=== PATIENT | male | born 1995 | race Two or more races ===

== ENCOUNTER 2019-12-16 16:29 | Outpatient (REF) | payer MEDICAID, SELFPAY | END 2019-12-16 16:30 | disposition home or self-care (01) | LOC: HO.LAB 16:29 | PROVIDERS: Visit Provider Internal Medicine | DX: Z20.828 Contact with and (suspected) exposure to other viral communicable diseases (principal) | CPT/HCPCS: 87635 ==

== ENCOUNTER 2021-04-19 09:40 | Emergency (ER) | payer MEDICAID, SELFPAY ==
[2021-04-19 10:06] VITALS: BP 119/68; PULSE 88; RESP 16; TEMP 37.1; O2SAT 100; BMI 27.1
--- NOTE | 2021-04-19 10:24 | ED.URI ---
HPI - URI/Sore Throat General Chief Complaint: Upper Respiratory Symptoms Stated Complaint: sore throat Time Seen by Provider: 04/19/21 10:17 Source: patient and family Mode of arrival: ambulatory Limitations: no limitations History of Present Illness HPI Narrative: 25 y/o male presents to the ER with 1 day of sore throat, nasal congestion, headache, body aches, and not feeling well since yesterday. He had COVID-19 end of Jan 2021-Feb 2021. He is not vaccinated. He is also not vaccianted for the flu. He presents with his girlfriend who has no symptoms. He denies fever or chills, no SOB or chest pain. Eating and drinking normally. MD elicited complaint: cough, sore throat, rhinorrhea and nasal congestion Onset (ago): day(s) (1) Consistency: progressively worsening Severity: moderate Description of mucous: clear Able to tolerate fluids by mouth: Yes Exacerbating factors: swallowing Relieving factors: OTC cold medicine Associated symptoms: myalgias, headache, rhinorrhea, nasal congestion, sore throat and cough Treatments prior to arrival: none Related Data Previous Rx's Medication Instructions Recorded amoxicillin 500 mg tablet 500 mg PO Q12H #20 tab 04/19/21 Allergies Allergy/AdvReac Type Severity Reaction Status Date / Time SEAFOOD Allergy Unknown UNKNOWN Uncoded 11/11/19 18:39 Review of Systems Review of Systems: Constitutional: No Fever, No Chills ENT/Mouth: + sore throat, No Rhinorrhea, No Swallowing Difficulty Eyes: No Eye Pain, No Swelling, No Redness Cardiovascular: No Chest Pain, No SOB, No Orthopnea, No Edema Respiratory: + Cough, No Sputum, No Wheezing, No dyspnea Gastrointestinal: No Nausea, No Vomiting, No Diarrhea, No abdominal Pain Musculoskeletal: No joint pain, + Myalgias Skin: No Skin Lesions, No rash Neuro: + Weakness, No Dizziness, + Headache Heme/Lymph: No Lymphadenopathy PMFSH Past Medical History Medical History (Updated 04/19/21 @ 11:06 by WILIAM Tenorio) No known health problems Social History Social History Advance Directives: No Advance Directives Information Provided: No Physical Exam Vital Signs: Vital Signs: Last Vital Signs Temp 98.7 F 04/19/21 10:06 Pulse 88 04/19/21 10:06 Resp 16 04/19/21 10:06 BP 119/68 04/19/21 10:06 Pulse Ox 100 04/19/21 10:06 BMI result Body Mass Index 27.1 Appearance: Alert. Oriented X3. No acute distress. Eyes: Pupils equal, round and reactive to light. ENT: Pharynx with moist mucus membranes, posterior pharyngeal erythema with bilateral tonsillar swelling, no exudates. uvula midline. nasal turbinates erythematous with clear nasal discharge. normal voice, handling secretions normally. Neck: Normal inspection. Neck supple. No LAD. CVS: Normal heart rate and rhythm. Pulses normal. Respiratory: No respiratory distress. Breath sounds normal. Skin: Skin warm and dry. Normal skin color. Normal skin turgor. No rashes. Extremities:Normal inspection x4. Neuro: Oriented X 3. Grossly normal, nonfocal Course Course Course Narrative: 25-year-old otherwise healthy male with recent COVID-19 presents to the ER for evaluation of flu-like symptoms including sore throat, headache, body aches, dry cough, nasal congestion that started yesterday. His vital signs are normal and he is nontoxic appearing. Will check a flu swab and a strep throat swab. Reevaluation(s) Reevaluation #1: Influenza is negative and patient is found to be positive for strep pharyngitis. Will treat with 10 days amoxicillin. Stable for discharge home with oral antibiotics and supportive care. MDM - URI/Sore Throat Lab Data Labs: Lab Results 04/19/21 04/19/21 Range/Units 10:25 10:25 Influenza Type A (MELODY) Negative (Negative) Influenza Type B (MELODY) Negative (Negative) Influenza A & B Note See Note S. pyogenes GrpA MELODY Positive A (Negative) Discharge Plan Discharge Clinical Impression: Strep pharyngitis Patient Disposition: Home, Self-Care Instructions: Strep Throat (DC) Additional Instructions: You're positive for strep throat. Take the prescribed antibiotic as directed, start taking today. Complete the entire course. Recommend [id number] Chloraseptic spray to help with pain in the back your throat. Recommend gargling with warm salt water several times per day. Take Motrin or Tylenol as needed for aches and pains. Follow-up with her primary care doctor as needed. If you develop new or worsening symptoms call 911 or come back to the ER for further evaluation. Prescriptions: New amoxicillin 500 mg tablet 500 mg PO Q12H Qty: 20 0RF
[2021-04-19 10:50] LABS: IDNOW Serial# 08D9AD1C; Influenza A Negative (Negative); Influenza B2 Negative (Negative); Strep A Nucleic Acid Positive (Negative)
== END 2021-04-19 11:18 | disposition home or self-care (01) ==
LOC: HO.ED 11:09
PROVIDERS: Physician Assistant; Emergency Provider Emergency Medicine
DX: J02.0 Streptococcal pharyngitis (principal)
CPT/HCPCS: 87502; 87651; 99283

== ENCOUNTER 2021-08-20 10:08 | Emergency (ER) | payer MEDICAID, SELFPAY ==
--- NOTE | ~2021-08-20 | XR_ITS ---
EXAMINATION: XR KNEE, LEFT CLINICAL INFORMATION: Pain. Fall. COMPARISON: None TECHNIQUE: Four views of the left knee. FINDINGS: Bones and soft tissues are normal. No fracture or joint effusion. Alignment is anatomic. Joint spaces are well maintained. No abnormal soft tissue calcification. XR/XR knee LT 4V IMPRESSION: Normal left knee.
[2021-08-20 10:48] VITALS: BP 124/82; PULSE 60; RESP 18; TEMP 37; O2SAT 99; BMI 25.8
--- NOTE | 2021-08-20 12:14 | ED_ITS ---
HPI - Extremity Injury (Lower) General Chief Complaint: Extremity Injury, Lower Stated Complaint: fell on pallet hurt left knee Time Seen by Provider: 08/20/21 11:00 Source: patient Mode of arrival: ambulatory Limitations: no limitations History of Present Illness HPI Narrative: Patient presents emergency department for evaluation of left knee pain. He states that while at work he fell on a wooden Pallet, feeling his left knee hyper extended backwards. Now reporting pain to the posterior knee. He is able to weightbear and walk on the leg but it is painful. Denies any numbness or tingling to the leg. Denies left ankle or hip pain. Denies any prior injury to the knee. Related Data Previous Rx's Medication Instructions Recorded amoxicillin 500 mg tablet 500 mg PO Q12H #20 tabs 04/19/21 Allergies Allergy/AdvReac Type Severity Reaction Status Date / Time SEAFOOD Allergy Unknown UNKNOWN Uncoded 11/11/19 18:39 Review of Systems Review of Systems: Musculoskeletal: Positive knee pain. Yes all other sys tems are reviewed and are negative PMFSH Past Medical History Attestation statement: The following information was validated with the patient. Source: old records reviewed Medical History No known health problems Social History Social History Advance Directives: No Advance Directives Information Provided: No Physical Exam Vital Signs: Vital Signs: Last Vital Signs Temp 98.6 F 08/20/21 10:48 Pulse 60 08/20/21 10:48 Resp 18 08/20/21 10:48 BP 124/82 08/20/21 10:48 Pulse Ox 99 08/20/21 10:48 O2 Del Method 08/20/21 10:48 BMI result Body Mass Index 25.8 Vital signs have been reviewed as normal and appeared to be correct. Blood pressure normal.? Heart rate normal.? Respiration rate normal. Temperature norm al.? Oxygen saturation normal. Appearance: Alert.?Oriented to person, place and time. No acute distress.?Normal affect. Eyes: Pupils equal, round and reactive to light.? ENT: Pharynx normal.?? Neck: Normal inspection.? Neck supple.?? CVS: Heart sounds normal. Normal heart rate and rhythm.? Pulses normal.?? Respiratory: No respiratory distress.? Lung sounds clear to auscultation bilaterally?? Abdomen: Soft and non-tender. Normoactive bowel sounds. Skin: Skin warm and dry.? Normal skin color.??? Extremities: No lower extremity edema.? No calf ttp. Anterior drawer test negative, posterior drawer test negative, valgus stress test negative, Veress stress test negative. No effusion. No crepitus. No obvious deformity. Palpable 2+ DP/PT pulse is Neuro: Moves all extremities spontaneously. Sensation intact bilaterally. CN II- XII intact. No focal neuro deficits. Ambulates with normal steady gait. Course Course Course Narrative: Patient is a 25-year-old male presenting to emergency department for evaluation of traumatic left knee pain. XR reveals no acute fracture dislocation, no laxity on exam, or obvious deformity/effusion. Suspect patient to have sprain of the knee. Discussed cannot completely exclude ligamentous injury, as XR imaging is not the imaging of choice for this. At this time we discussed symptomatic management, Tylenol and ibuprofen as needed for pain, Mor bandage for compression, ice and elevation of the extremity. Advised patient that he should contact his work to determine appropriate follow-up, as they may have a preferred workman's comp organization, otherwise advised to follow-up with his primary care provider within 1 week. Discussed reasons to return back to the emergency department, all questions were answered and patient was discharged home in stable condition MDM - Extremity Injury (Lower) Medical Records Attestation: I reviewed the patient's medical records. Imaging Data XR knee: Radiologist's impression: XR/XR knee LT 4V IMPRESSION: Normal left knee. Discharge Plan Discharge Clinical Impression: Knee sprain Patient Disposition: Home, Self-Care Instructions: Knee Sprain (ED), R.I.C.E. Treatment (ED) Additional Instructions: As we discussed the x-ray of your knee was normal. Suspect your pain to be related to a sprain of the knee, as we discussed, cannot completely exclude a ligament injury, as x-ray imaging is not the imaging of choice for this. Be sure to rest, apply ice for 10-15 minutes a few times a day, use an Mor bandage for compression, and elevate your leg when possible. You can take ibuprofen 200 mg, 3 tablets (600mg) every 6-8 hours as needed for pain, in addition to Tylenol 500 mg, 2 tablets (1,000mg) every 4-6 hours as needed for pain, but not to exceed 3 doses daily (3,000mg).? You should remain out of work for a few days to ensure rest, as we discussed you will need to follow-up with your work, as they may have a workman's [employer] company that they prefer you to be followed up with. Contact your primary care provider to schedule follow-up visit as needed. Prescriptions: No Action amoxicillin 500 mg tablet 500 mg PO Q12H Qty: 20 0RF Stand Alone Forms: Work/School Release Interventions: ED Discharge Assessment Last Done: 08/20/21 13:36 Discharge Date/Time: 08/20/21 13:37
== END 2021-08-20 13:37 | disposition home or self-care (01) ==
PROVIDERS: Emergency Provider Emergency Medicine Emergency Medical Services
DX: S83.92XA Sprain of unspecified site of left knee, initial encounter (principal); Y29.XXXA Contact with blunt object, undetermined intent, initial encounter; Y93.9 Activity, unspecified; Y92.9 Unspecified place or not applicable; Y99.0 Civilian activity done for income or pay
CPT/HCPCS: 73564; 99283

== ENCOUNTER 2022-06-25 11:08 | Emergency (ER) | payer MEDICAID, SELFPAY ==
--- NOTE | ~2022-06-25 | XR_ITS ---
EXAMINATION: XR CHEST CLINICAL INFORMATION: Left-sided chest pain. COMPARISON: 11/22/2013 chest radiographs. TECHNIQUE: 2 views of the chest were obtained. FINDINGS: No significant abnormality is noted involving the heart, lungs, mediastinum, bony thorax or soft tissues. XR/XR chest 2V IMPRESSION: No acute cardiopulmonary process.
--- NOTE | 2022-06-25 11:10 | ECG_ITS ---
Test Reason : chest pain/ SOB Blood Pressure : / mmHG Vent. Rate : 066 BPM Atrial Rate : 066 BPM P-R Int : 140 ms QRS Dur : 090 ms QT Int : 398 ms P-R-T Axes : 042 037 042 degrees QTc Int : 417 ms Normal sinus rhythm Normal ECG When compared with ECG of 22-NOV-2013 21:20, No significant change was found Referred By: Dory Jackson Electronically Signed By:ALECIA AGARWAL MD
[2022-06-25 11:16] VITALS: BP 123/79; PULSE 74; RESP 18; TEMP 36.1; O2SAT 99; BMI 29.0
--- NOTE | 2022-06-25 11:18 | ED.CHESTPAIN ---
HPI - Chest Pain General Chief Complaint: Chest Pain Stated Complaint: Chest pain Time Seen by Provider: 06/25/22 13:15 Source: patient Mode of arrival: ambulatory Limitations: no limitations History of Present Illness HPI narrative: 26 yo male with no medical history presents to the ER for evaluation of transient nonradiating, sharp left sided lower chest pain that occurred this morning while he was at work and lasted about 10 minutes. Mild associated SOB which is also resolved. He has never had pain like this before. Currently pain free. No N/V/D or abdominal pain. MD complaint: chest pain Onset (ago): hour(s) Timing of current episode: episodic Onset: during rest Pain location: left chest Pain radiation: none Severity: moderate Quality: sharp Relieving factors: rest Exacerbating factors: nothing Associated symptoms: dyspnea Treatment prior to arrival: none Risk Factors Coronary artery disease risk factors: none Thoracic aortic dissection risk factors: none Related Data Previous Rx's Medication Instructions Recorded amoxicillin 500 mg tablet 500 mg PO Q12H #20 tabs 04/19/21 Allergies Allergy/AdvReac Type Severity Reaction Status Date / Time SEAFOOD Allergy Unknown UNKNOWN Uncoded 06/25/22 11:16 Review of Systems Review of Systems: Yes all other systems are reviewed and are negative PMFSH Past Medical History Medical History No known health problems Social History Social History Advance Directives: No Advance Directives Information Provided: No Physical Exam Vital Signs: Vital Signs: Last Vital Signs Temp 97.0 F 06/25/22 11:16 Pulse 74 06/25/22 11:16 Resp 18 06/25/22 11:16 BP 123/79 06/25/22 11:16 Pulse Ox 99 06/25/22 11:16 O2 Del Method Room Air 06/25/22 11:16 BMI result Body Mass Index 29.0 Appearance: Alert. Oriented X3. No acute distress. Head: normocephalic, atraumatic. Eyes: Pupils equal, round and reactive to light. ENT: Pharynx normal. No tonsillar swelling or exudate. Neck: Normal inspection. Neck supple. CVS: Normal heart rate and rhythm. Pulses normal. Respiratory: No respiratory distress. Breath sounds normal. Abdomen: Soft and nontender. +BS x4 Skin: Skin warm and dry. Normal skin color. Normal skin turgor. No rashes. Extremities: No lower extremity edema. No joint swelling. Neuro/psych: Oriented X 3. No motor deficit. No sensory deficit. CN II-XII intact. Normal speech and cognition. Course Course Course Narrative: RME - 26 yo Italian speaking male presents to the ER for evaluation of transient left sided chest pain that started at 10:30am while at work and lasted 10 minutes. Mild SOB associated with it. He is currently pain free. VSS in triage. Plan: EKG and CXR Medical Decision Making Medical Decision Making MDM Narrative: 26 yo healthy male presenting with transient sharp chest pain, now gone. EKG and chest x-ray are normal. remains pain free. doubt cardiac etiology Stable for d/c home with outpatient follow up prn. Differential Diagnosis Differential Diagnoses: The differential diagnosis associated with the presentation includes costochondritis, anxiety, pleurisy, doubt ACS, PE, myocarditis, pericarditis, PNA Independent Interpretation I performed an independent interpretation of an: EKG and Plain X-Ray Interpretation: CXR is clear EKG wtih normal sinus rhythm, HR 66 bpm, normal IL interval, normal QTC, no ST segment elevations or depressions Radiology Impression Discussion of test interpretation with radiology: I have reviewed the radiologist's reading. Radiologist Impression: EXAMINATION: XR CHEST CLINICAL INFORMATION: Left-sided chest pain. COMPARISON: 11/22/2013 chest radiographs. TECHNIQUE: 2 views of the chest were obtained. FINDINGS: No significant abnormality is noted involving the heart, lungs, mediastinum, bony thorax or soft tissues. XR/XR chest 2V IMPRESSION: No acute cardiopulmonary process. Independent Historian Clinical information obtained from an independent historian. History obtained from or confirmed by: Friend External Record Review External record reviewed: Prior outpatient labs Tests considered The following testing was considered but not selected: labs considered but clinical suspicion for cardiac chest pain was very low Critical Care Time Critical Care Time Critical Care Time: No Discharge Plan Discharge Clinical Impression: Atypical chest pain Patient Disposition: Home, Self-Care Instructions: Noncardiac Chest Pain (ED) Additional Instructions: Your EKG was normal Your chest x-ray was normal Your pain is not cardiac Rest and drink plenty of fluids Follow up with you doctor If you develop new or worsening symptoms call 911 or come back to the ER for further evaluation. Prescriptions: No Action amoxicillin 500 mg tablet 500 mg PO Q12H Qty: 20 0RF Stand Alone Forms: Work/School Release Interventions: ED Discharge Assessment Last Done: 06/25/22 14:14 Print Language: Italian
== END 2022-06-25 13:50 | disposition home or self-care (01) ==
PROVIDERS: Emergency Provider Emergency Medicine
DX: R07.89 Other chest pain (principal)
CPT/HCPCS: 71046; 93005; 99283; 99284

== ENCOUNTER 2022-07-02 10:56 | Emergency (ER) | payer MEDICAID, SELFPAY ==
--- NOTE | ~2022-07-02 | US_ITS ---
EXAMINATION: US VENOUS WITH DOPPLER UPPER EXTREMITY, LEFT CLINICAL INFORMATION: Left upper extremity pain and swelling. COMPARISON: None available. TECHNIQUE: Real-time ultrasound examination of the left upper extremity was performed roughly from the mid subclavian vein to the antecubital fossa. Images of the ipsilateral jugular vein were obtained as well. FINDINGS: The cephalic vein, brachial veins, basilic vein, axillary vein and visualized portion of the subclavian vein compress normally throughout. Normal augmentation of flow with compression is demonstrated. The jugular vein appears unremarkable. US/US venous duplex UE LT IMPRESSION: No evidence of left upper extremity venous thrombosis.
--- NOTE | ~2022-07-02 | XR_ITS ---
EXAMINATION: XR ELBOW, LEFT CLINICAL INFORMATION: Left elbow pain and swelling. COMPARISON: Left elbow radiographs dated 03/07/2017. TECHNIQUE: AP, lateral, and oblique views of the left elbow. FINDINGS: The bones and soft tissues are normal. No fracture or joint effusion. Alignment is anatomic. Joint spaces are maintained. XR/XR elbow LT min 3V IMPRESSION: Unremarkable examination.
[2022-07-02 11:17] VITALS: BP 124/71; PULSE 71; RESP 19; TEMP 36.2; O2SAT 99; BMI 31.3
--- NOTE | 2022-07-02 11:17 | ED_ITS ---
HPI - Extremity Injury (Upper) General Chief Complaint: Extremity Problem <WILIAM Hogde Last Filed: 07/02/22 11:22> Stated Complaint: L arm pain/swelling no inj <WILIAM Hodge - Last Filed: 07/02/22 11:22> Time Seen by Provider: 07/02/22 11:31 <WILIAM Hodge - Last Filed: 07/02/22 11:22> Source: patient and family <Jose G Walters - Last Filed: 07/02/22 14:18> Limitations: no limitations <Jose G Walters - Last Filed: 07/02/22 14:18> History of Present Illness HPI narrative: 26-year-old male complaining of left elbow pain. Patient states he woke this morning with pain in the middle of his left elbow pain increases with range of motion or palpation. Patient denies any trauma or falls. Patient does work a labor-intensive job. Patient has not had similar symptoms in the past. Patient denies any fever chills or redness to the area. Some slight swelling has been noticed. Symptoms are [id number]. Pain 6/10. Patient denies history of IV drug use. No history of blood clots in the past. Patient is without shortness of breath fever chills. <Jose G Walters - Last Filed: 07/02/22 14:18> Related Data Home Medications: Previous Rx's Medication Instructions Recorded amoxicillin 500 mg tablet 500 mg PO Q12H #20 tabs 04/19/21 naproxen 500 mg tablet 500 mg PO BID PRN pain #30 tabs 07/02/22 <WILIAM Hodge Last Filed: 07/02/22 11:22> Allergies/Adverse Reactions: Allergies Allergy/AdvReac Type Severity Reaction Status Date / Time SEAFOOD Allergy Unknown UNKNOWN Uncoded 06/25/22 11:16 <WILIAM Hodge Last Filed: 07/02/22 11:22> Review of Systems Review of Systems: General: No fever, no chills ENT: No sore throat, no ear pain Cardiovascular: No chest pain, no peripheral edema, no shortness of breath Respiratory: No dyspnea, no sputum production, no cough Muscle skeletal: Left elbow positive pain GI: No abdominal pain: no nausea vomiting, no diarrhea : No dysuria, no urgency, no frequency Psychiatric: No depression, no suicidal ideation, no homicidal ideation Skin: No rash Immunology: No immunocompromised Hematology: No bleeding, no bruising <Jose G Walters - Last Filed: 07/02/22 14:18> [facility] Past Medical History Medical History: Medical History No known health problems <WILIAM Hodge - Last Filed: 07/02/22 11:22> Social History Social History: Social History Alcohol intake: current Alcohol intake frequency: a few times a week Smoked in Last 30 Days: Yes Use of substances other than those prescribed or required for medical reasons: No Advance Directives: No Advance Directives Information Provided: Yes <WILIAM Hodge - Last Filed: 07/02/22 11:22> Physical Exam Vital Signs: Vital Signs: Last Vital Signs Temp 97.2 F 07/02/22 11:17 Pulse 71 07/02/22 11:17 Resp 07/02/22 11:17 BP 124/71 07/02/22 11:17 Pulse Ox 99 07/02/22 11:17 O2 Del Method Room Air 07/02/22 11:17 BMI result Body Mass Index 31.3 <WILIAM Hodge - Last Filed: 07/02/22 11:22> Vital Signs: Last Vital Signs Temp 97.2 F 07/02/22 11:17 Pulse 71 07/02/22 11:17 Resp 07/02/22 11:17 BP 124/71 07/02/22 11:17 Pulse Ox 99 07/02/22 11:17 O2 Del Method Room Air 07/02/22 11:17 BMI result Body Mass Index 31.3 <Jose G Walters - Last Filed: 07/02/22 14:18> General appearance: Awake, alert, cooperative, in no acute distress Skin: Warm, dry, no rash, left upper extremity no areas of erythema induration noted Eyes: PERRL, EOMI, no icterus ENT: Oropharynx normal, uvula midline Neck: Soft supple full range of motion Pulmonary: Breath sounds clear to auscultation bilaterally, no accessory muscle use Cardiovascular: Regular rate and rhythm, no murmurs and rubs Extremities: Left elbow medial lateral epicondyle and nontender positive range of motion. Pain does increase with range of motion. Tenderness is over the electron per bursa. Pulses sensation intact. Full range of motion Neuro: Alert oriented x3, no focal deficit Psych: Normal affect <Jose G Walters - Last Filed: 07/02/22 14:18> Course Course Course Narrative: RME: 26yo m w/no sig PMHx c/o L elbow pain and swelling since waking this morning. Denies known injury/trauma or fall, fever or chills + left elbow swelling noted with tenderness. Limited ROM secondary to pain. No erythema/warmth. NV intact distally X-ray ordered, may need venous duplex ultrasound Full HPI, ROS and PE to be performed by primary ED provider. <WILIAM Hodge - Last Filed: 07/02/22 11:22> Medical Decision Making Medical Decision Making MDM Narrative: Left elbow occult fracture Left elbow olecranon bursitis Left elbow epicondylitis Left elbow pain Left upper extremity DVT Left bicipital tendon rupture low suspicion 26-year-old male with atraumatic left elbow pain. Patient denies past medical history. Left elbow x-rays pending. Symptoms see more consistent with micron bursitis 12:41 X-ray of the left elbow was negative Will get a left upper extremity duplex ultrasound rule out DVT 14:15 duplex of the left upper extremities negative symptoms seem more consistent with olecranon bursitis. <Jose G Walters - Last Filed: 07/02/22 14:18> Radiology Impression Discussion of test interpretation with radiology: I have reviewed the radiologist's reading. <Jose G Walters - Last Filed: 07/02/22 14:18> Radiologist Impression: [address] [id number] Ultrasound Report Signed Patient: Ramon Ellsworth MR#: [id number] : 1995 Acct:[id number] Age/Sex: 26 / M ADM Date: 07/02/22 Loc: HO.ED Attending Dr: Ordering Physician: Jose G Walters Date of Service: 07/02/22 Procedure(s): US venous duplex UE Accession Number(s): [id number] cc: Jose G Walters ~ EXAMINATION:? US VENOUS WITH DOPPLER UPPER EXTREMITY, LEFT CLINICAL INFORMATION:? Left upper extremity pain and swelling. COMPARISON:? None available. TECHNIQUE: Real-time ultrasound examination of the left upper extremity was performed roughly from the mid subclavian vein to the antecubital fossa.? Images of the ipsilateral jugular vein were obtained as well. FINDINGS: The cephalic vein, brachial veins, basilic vein, axillary vein and visualized portion of the subclavian vein compress normally throughout. ?Normal augmentation of flow with compression is demonstrated.? The jugular vein appears unremarkable. US/US venous duplex UE LT IMPRESSION: ? No evidence of left upper extremity venous thrombosis. Dictated By: Bo Hernandez Signed By: <Electronically signed by Bo? Mary in [place]> 07/02/22 1404 DD/ 1325 TD/TT:? Hide Handler: [address] [id number] XRay Report Signed Patient: Ramon Ellsworth MR#: [id number] : 1995 Acct:[id number] Age/Sex: 26 / M ADM Date: 07/02/22 Loc: .ED Attending Dr: Ordering Physician: Della Cameron Date of Service: 07/02/22 Procedure(s): XR elbow LT min 3V Accession Number(s): [id number] cc: Della Cameron~ EXAMINATION: XR ELBOW, LEFT CLINICAL INFORMATION: Left elbow pain and swelling.? COMPARISON: Left elbow radiographs dated 03/07/2017.? TECHNIQUE: AP, lateral, and oblique views of the left elbow. FINDINGS: The bones and soft tissues are normal. No fracture or joint effusion. Alignment is anatomic. Joint spaces are maintained.? XR/XR elbow LT min 3V IMPRESSION: Unremarkable examination. Dictated By: Zafar Apple MD Signed By: <Electronically signed by Zafar Apple MD in [place]> 07/02/22 1235 DD/ 1130 TD/TT:? Hide Handler: <Jose G Walters - Last Filed: 07/02/22 14:18> Discharge Plan Discharge Clinical Impression: Bursitis of left elbow <WILIAM Hodge - Last Filed: 07/02/22 11:22> Patient Disposition: Home, Self-Care <WILIAM Hodge - Last Filed: 07/02/22 11:22> Instructions: Elbow Bursitis (ED) <WILIAM Hodge - Last Filed: 07/02/22 11:22> Additional Instructions: X-ray of the left elbow was negative. Ultrasound of a left upper extremity is negative for a blood clot. Symptoms seem consistent with a left elbow bursitis rest ice elevation medication as directed If symptoms continue call PCP for referral to orthopedics Return if symptoms worsen <WILIAM Hodge - Last Filed: 07/02/22 11:22> Prescriptions: New naproxen 500 mg tablet 500 mg PO BID PRN (Reason: pain) Qty: 30 0RF No Action amoxicillin 500 mg tablet 500 mg PO Q12H Qty: 20 0RF <WILIAM Hodge Last Filed: 07/02/22 11:22> Stand Alone Forms: Work/School Release <WILIAM Hodge - Last Filed: 07/02/22 11:22>
--- NOTE | 2022-07-02 12:26 | PC.NURSE ---
Patient with pain in left elbow, worse with movement. Patient with decreased range of motion to that extremity due to the pain. Patient is otherwise well appearing.
== END 2022-07-02 14:24 | disposition home or self-care (01) ==
PROVIDERS: Emergency Provider Emergency Medicine
DX: M70.32 Other bursitis of elbow, left elbow (principal); Y93.89 Activity, other specified; M79.602 Pain in left arm
CPT/HCPCS: 73080; 93971; 99284

== ENCOUNTER 2022-12-17 08:21 | Emergency (ER) | payer SELFPAY ==
[2022-12-17 08:24] VITALS: BP 126/88; PULSE 79; RESP 18; TEMP 36.7; O2SAT 98; BMI 32.4
[2022-12-17 09:00] LABS: IDNOW Serial# 08D9AD1C
[2022-12-17 09:01] LABS: COVID-19 Test Negative (Negative); IDNOW Serial# 9DB6401D; Influenza A Negative (Negative); Influenza B2 Negative (Negative)
--- NOTE | 2022-12-17 10:40 | ED.GENADULT ---
HPI - General Adult General Chief complaint: General Medical Stated complaint: Vomiting/Nausea/Cough Time Seen by Provider: 12/17/22 10:23 Source: patient and family Mode of arrival: ambulatory Limitations: no limitations History of Present Illness HPI narrative: Patient is a 27-year-old male presenting to the emergency department with complaint of nausea and vomiting yesterday, nausea today. Today woke with generalized body aches and nonproductive cough. Denies fever. Patient's significant other reports she medicated him with neck wall last night, patient has not taken any [id number] medications today. He denies abdominal pain, diarrhea, constipation. MD complaint: Nausea, cough, body aches Onset (ago): day(s) Relieving factors: none Exacerbating factors: eating Associated symptoms: nausea/vomiting and other (generalized body aches) Treatments prior to arrival: other (Nyquil) Related Data Previous Rx's Medication Instructions Recorded amoxicillin 500 mg tablet 500 mg PO Q12H #20 tabs 04/19/21 naproxen 500 mg tablet 500 mg PO BID PRN pain #30 tabs 07/02/22 ondansetron 4 mg disintegrating 4 mg PO Q8H PRN nausea and 12/17/22 tablet vomiting #10 tabs Allergies Allergy/AdvReac Type Severity Reaction Status Date / Time SEAFOOD Allergy Unknown UNKNOWN Uncoded 12/17/22 08:28 Review of Systems Review of Systems: As per HPI. Yes all other systems are reviewed and are negative Constitutional: Constitutional: Reports as per HPI [facility] Past Medical History Medical History No known health problems Social History Social History Alcohol intake: current Alcohol intake frequency: a few times a week Advance Directives: No Advance Directives Information Provided: No Physical Exam ED Vital Signs: Vital Signs - 24 hr 12/17/22 08:24 Temperature 98.0 F Pulse Rate 79 Respiratory Rate 18 Blood Pressure 126/88 Pulse Oximetry 98 Oxygen Delivery Method Room Air BMI result Body Mass Index 32.4 Vital signs have been reviewed and appear to be correct. Blood pressure normal. Heart rate normal. Respiratory rate normal. Temperature normal. Oxygen saturation normal. Const General: cooperative, healthy appearing and no acute distress Orientation/consciousness: oriented to person, oriented to place, oriented to time and patient oriented x3 Limitations: no limitations HENMT Head: Yes normocephalic and Yes atraumatic Ears: external ears normal, TM's normal bilaterally and EAC's normal General nose exam: Normal external nose present Face and sinus: Yes face symmetric Mouth: oropharynx normal and moist mucous membranes Throat: Yes tonsils normal, Yes uvula midline, Yes posterior oropharynx abnormal (Erythema without edema or exudate) and No uvular edema Eyes Pupils: Equal, round and reactive pupils present Neck Neck: Yes normal visual inspection, Yes no lymphadenopathy and Yes supple Resp Effort & Inspection: normal respiratory effort and able to speak in complete sentences Auscultation: clear to auscultation bilaterally Cardio Rate: regular rate Rhythm: regular rhythm Heart sounds: S1 normal heart sound present and S2 normal heart sound present GI Palpation (GI): Soft to palpation and nontender Auscultation: normoactive bowel sounds General: Yes no CVA tenderness Back/Spine/Pelvis Back: no CVA tenderness Skin General skin exam: elasticity normal and turgor normal Neuro General: oriented to person, oriented to place, oriented to time, patient oriented x3, moves all extremities, no focal motor deficits and CN's II-XI intact bilaterally Cranial nerves: Yes Equal, round and reactive pupils present Cognition (Neuro): normal cognition Extrem General: Yes full ROM, Yes no pedal edema and Yes no calf tenderness Psych Mental Status: mental status grossly normal Affect: normal affect Thought process: Normal thought process present Medications Administered Discontinued Medications Generic Name Dose Route Start Last Admin Trade Name Freq PRN Reason Stop Dose Admin Ondansetron HCl 4 mg 12/17/22 10:47 12/17/22 10:52 Ondansetron Odt 4 Mg Tab.Nayelidis TRANSLINGU 12/17/22 10:48 4 mg ONCE ONE Administration Medical Decision Making Medical Decision Making [facility] Narrative: Patient is a 27-year-old male presenting to the emergency department with complaint of nausea and vomiting yesterday, nausea today. On exam patient is awake, A+Ox3, VS WNL, afebrile, normal neurological exam without focal deficits, physical exam findings as above. Given reported symptoms and physical exam findings, initial differential includes gastritis, viral illness, COVID, flu, strep pharyngitis. Swabs for COVID and flu negative, patient updated on results. Will swab for strep, order ODT zofran. Likely viral illness as patient is nontoxic appearing. Strep negative, patient updated on results. Will send prescription for Zofran. Return precautions discussed at bedside. Patient verbalized understanding of and agreement with plan. Differential Diagnosis Differential Diagnoses: The differential diagnosis associated with the presentation includes As per [facility]. Lab Data [facility] Lab Attestation statement: I reviewed the patient's lab results. As per [facility] Labs: Lab Results 12/17/22 12/17/22 Range/Units 08:35 10:42 COVID-19 (ANTHONY) Negative (Negative) COVID-19 Clin Com See Note Influenza Type A (MELODY) Negative (Negative) Influenza Type B (MELODY) Negative (Negative) Influenza A & B Note See Note S. pyogenes GrpA MELODY Negative (Negative) External Record Review External record reviewed: Inpatient record, Office record and Outpatient record Prescription Management I considered prescription management with: Other Discharge Plan Discharge Clinical Impression: Viral illness Patient Disposition: Home, Self-Care Instructions: Viral Syndrome (ED) Additional Instructions: You were evaluated in the emergency department today for nausea, vomiting, and cough. Your Covid, flu, and strep tests were all negative. Your symptoms are likely related to a viral illness which will resolve on its own with time and rest. You should ensure adequate fluid intake, and can use Tylenol 650 mg or ibuprofen 600 mg every 6 hours as needed for fever or discomfort. You are being prescribed Zofran (ondansetron) for nausea, please use as prescribed. Please follow-up with your primary care provider this week. Return to the emergency department if you develop chest pain, worsening shortness of breath, difficulty swallowing, fever 100.4? F or greater or any other concerning symptoms. Prescriptions: New ondansetron 4 mg tablet,disintegrating 4 mg PO Q8H PRN (Reason: nausea and vomiting) Qty: 10 0RF No Action amoxicillin 500 mg tablet 500 mg PO Q12H Qty: 20 0RF naproxen 500 mg tablet 500 mg PO BID PRN (Reason: pain) Qty: 30 0RF
[2022-12-17] MEDS: Ondansetron ODT 4 MG TAB.RAPDIS TRANSLINGU (10:52)
[2022-12-17 10:58] LABS: IDNOW Serial# 08D9AD1C; Strep A Nucleic Acid Negative (Negative)
== END 2022-12-17 12:12 | disposition home or self-care (01) ==
PROVIDERS: Registered Nurse Emergency; Emergency Provider Emergency Medicine
DX: B34.9 Viral infection, unspecified (principal); R11.2 Nausea with vomiting, unspecified; R05.9 Cough, unspecified; Z11.52 Encounter for screening for COVID-19
CPT/HCPCS: 87502; 87635; 87651; 99282; 99283

== ENCOUNTER 2024-04-02 16:28 | Emergency (ER) | payer SELFPAY ==
--- NOTE | ~2024-04-02 | XR_ITS ---
CLINICAL HISTORY: pain 1 view chest x-ray Comparison: CR/SR - XR CHEST 2V - 06/25/22 11:52 EDT Findings: The lungs are clear. Normal size heart. No acute fracture. IMPRESSION: 1. No acute findings. This document has been electronically signed by: Aminata Pham MD on 04/02/2024 17:35:33
--- NOTE | 2024-04-02 16:31 | ECG_ITS ---
Test Reason : pain Blood Pressure : */* mmHG Vent. Rate : 105 BPM Atrial Rate : 105 BPM P-R Int : 126 ms QRS Dur : 86 ms QT Int : 336 ms P-R-T Axes : 75 76 70 degrees QTcB Int : 444 ms Sinus tachycardia Otherwise normal ECG When compared with ECG of 25-Jun-2022 11:32, Vent. rate has increased by 39 bpm Referred By: Yoly Morrell Electronically Signed By: Paolo Espinoza
[2024-04-02 16:43] VITALS: BP 123/68; PULSE 104; RESP 19; TEMP 37.3; O2SAT 94; BMI 31.5
--- NOTE | 2024-04-02 16:45 | ED.GENADULT ---
HPI - General Adult General Chief complaint: Upper Respiratory Symptoms Stated complaint: chest pain,headache,nausea Time Seen by Provider: 04/03/24 00:13 Source: patient Mode of arrival: ambulatory Limitations: no limitations History of Present Illness ED Provider: Dr. Keyonna Thomas HPI narrative: Patient comes in the emergency room complaining of cough, congestion, shortness of breath. Patient denies fever or chills. Patient states that he has been coughing so much that his throat hurts but otherwise no significant throat pain. Denies nausea vomiting or diarrhea, no URI or UTI symptoms. Related Data Previous Rx's ?Medication ?Instructions ?Recorded amoxicillin 500 mg tablet 500 mg PO Q12H #20 tabs 04/19/21 naproxen 500 mg tablet 500 mg PO BID PRN pain #30 tabs 07/02/22 ondansetron 4 mg disintegrating 4 mg PO Q8H PRN nausea and 12/17/22 tablet vomiting #10 tabs albuterol sulfate 90 mcg/actuation 2 puff inhalation Q4-6H PRN 04/03/24 aerosol inhaler shortness of breath or wheezing #8.5 grams prednisone 50 mg tablet 50 mg PO DAILY #4 tabs 04/03/24 Allergies Allergy/AdvReac Type Severity Reaction Status Date / Time SEAFOOD Allergy Unknown UNKNOWN Uncoded 04/02/24 16:44 Review of Systems Review of Systems: Constitutional : No Weight loss, No Fever, No Chills, No Night Sweats, No Fatigue, No Malaise ENT/Mouth : No Hearing loss, No Ear Pain, No Nasal Congestion, No Sinus Pain, No Hoarseness, No sore throat, No Rhinorrhea, No Swallowing Difficulty Eyes: No Eye Pain, No Swelling, No Redness, No Foreign Body, No Discharge, No Vision Changes Cardiovascular : Complaining of chest tightness, denies Chest Pain, No SOB, No Dyspnea on Exertion, No Orthopnea, No Edema, No Palpitations Respiratory : Complaining of cough, shortness of breath Gastrointestinal : No Nausea, No Vomiting, No Diarrhea, No Constipation, No abdominal Pain, No Hematochezia, No Melena Genitourinary : no irregular bleeding, No Dysuria, No Urinary Frequency, No Hematuria, No Urinary Incontinence, No Urgency, No Flank Pain, No Urinary Flow Changes, No Hesitancy Musculoskeletal : No joint pain, No Myalgias, No Joint Swelling Skin : No Skin Lesions, No rash Neuro : No Weakness, No Numbness, No Paresthesias, No Loss of Consciousness, No Dizziness, No Headache Psych : No Anxiety/Panic, No Depression, No SI/HI/AH/VH, No Social Issues, Heme/Lymph: No Bruising, No Bleeding,No Lymphadenopathy Endocrine : No Polyuria, No Polydipsia, No Temperature Intolerance [facility] Past Medical History Medical History No known health problems Social History Social History Alcohol intake: current Alcohol intake frequency: a few times a week Advance Directives: No Advance Directives Information Provided: Yes Do you have a plan to hurt others: No Plan Physical Exam ED Vital Signs: Vital Signs - 24 hr 04/02/24 16:43 04/03/24 00:05 04/03/24 00:38 Temperature 99.2 F 99.1 F Pulse Rate 104 H 108 H 119 H Respiratory Rate 19 16 21 H Blood Pressure 123/68 148/88 H Pulse Oximetry 94 95 Oxygen Delivery Method Room Air 04/03/24 01:09 04/03/24 02:09 Temperature 98.3 F Pulse Rate 116 H 114 H Respiratory Rate 20 18 Blood Pressure 133/75 Pulse Oximetry 95 Oxygen Delivery Method Room Air BMI result Body Mass Index 31.5 Const Other: Appearance: Alert. Oriented X3. No acute distress. Eyes: Pupils equal, round and reactive to light. ENT: Erythematous oropharynx, no visualized abscesses Neck: Normal inspection. Neck supple. No lymph nodes noted. No crepitus CVS: Normal heart rate and rhythm. Pulses normal. Normal S1 and S2 Respiratory: No respiratory distress. Mild to moderate bilateral wheezing, no rales or crackles Abdomen: Soft and nontender. No rigidity. No distention. Skin: Skin warm and dry. Normal skin color. Normal skin turgor. Extremities: No lower extremity edema. No Lacerations. No Rash Neuro: Oriented X 3. No motor deficit. No sensory deficit. Moving all extremities. No slurred speech. CN 2 through 12 grossly intact Psych: calm, cooperative, normal affect Course Course Course Narrative: This is a rapid medical exam performed by Yoly Morrell PA-C. The patient is a 28-year-old otherwise healthy male who presents with cough and cold symptoms x1 day. No sick contacts with same symptoms, subjective fevers at home. On exam his lungs are clear no wheezing. The patient is stable he can return to the waiting room pending his full medical assessment. I ordered screening labs EKG chest x-ray and viral swab Medications Administered Discontinued Medications Generic Name Dose Route Start Last Admin Trade Name Alison PRN Reason Stop Dose Admin Albuterol Sulfate 2.5 mg/ 0 mg 04/03/24 00:32 04/03/24 00:41 Albuterol/Ipratropium 3 ml INHALE 04/03/24 00:33 1 dose ONCE ONE Administration Albuterol Sulfate 2.5 mg/ 0 mg 04/03/24 01:04 04/03/24 01:08 Albuterol/Ipratropium 3 ml INHALE 04/03/24 01:05 1 dose ONCE ONE Administration Prednisone 60 mg 04/03/24 00:18 04/03/24 00:33 Prednisone 20 Mg Tablet PO 04/03/24 00:19 60 mg ONCE ONE Administration Medical Decision Making Medical Decision Making [facility] Narrative: My interpretation of labs: White blood cell Count is 20.3. Other than the URI, no obvious source of infection, no abscesses visualized. Patient's chemistry within normal limits, serology negative for flu RSV and COVID. Strep negative Chest x-ray negative for infiltrates On physical exam, patient is wheezing. Patient was given p.o. prednisone and a nebulization treatments. Patient needed couple of nebulization treatments. After the above-mentioned treatment, patient feels well, breathing more comfortably. On auscultation no longer wheezing. Patient ambulated in the emergency room, oxygen saturation 94%. I discussed with the patient that vaping which he does, is not healthier than smoking tobacco. Patient has been made aware that on the long run, this could cause severe pulmonary damage Differential Diagnosis Differential Diagnoses: The differential diagnosis associated with the presentation includes (Pneumonia, bronchitis, RSV/flu/COVID/strep) Admission/Observation Consideration of admission/observation: Escalation of care including admission/observation considered (Given patient's initial symptoms, observation was considered) Lab Data [facility] Lab Attestation statement: I reviewed the patient's lab results. 04/02/24 17:04 04/02/24 17:04 Labs: Lab Results 04/02/24 04/03/24 Range/Units 17:04 00:20 WBC 20.3 H (4.8-10.8) X10*3/uL RBC 5.42 (4.60-5.80) X10*6/uL Hgb 15.7 (14.0-18.0) g/dl Hct 47.1 (42.0-52.0) % MCV 86.9 (80.0-98.0) fL MCH 29.0 (27.0-33.0) pg MCHC 33.3 (31.0-36.0) g/dl RDW 13.2 (11.0-16.0) % Plt Count 341 (160-400) X10*3/uL MPV 9.3 L (9.4-12.4) fL Immature Gran % (Auto) 0.3 (0.0-0.4) % Neut % (Auto) 82.9 H (45-73) % Lymph % (Auto) 8.0 L (20-40) % [place] % (Auto) 6.3 (2-11) % Eos % (Auto) 2.1 (0-4) % Baso % (Auto) 0.4 (0-2) % Lymph # (Auto) 1.6 (1.2-4.9) X10*3/uL [place] # (Auto) 1.3 H (0.1-1.2) X10*3/uL Eos # (Auto) 0.4 (0.0-0.4) X10*3/uL Baso # (Auto) 0.1 (0.0-0.2) X10*3/uL Abs Immat Gran (auto) 0.06 H (0.00-0.03) X10*3/uL Absolute Neuts (auto) 16.8 H (2.0-8.3) x10*3/uL Absolute Nucleated RBC 0.000 (0.0-0.012) X10*3/uL Nucleated RBC % (auto) 0.0 (0.0-0.2) /100WBC Sodium 139 (135-145) mmol/L Potassium 4.3 (3.3-5.1) mmol/L Chloride 105 (96-108) mmol/L Carbon Dioxide 23 (22-29) mmol/L Anion Gap 15 (12-20) BUN 11 (9-16) mg/dL Creatinine 0.78 (0.5-1.4) mg/dL Estim Creat Clear Calc 149.5 Estimated GFR > 60 Random Glucose 90 (60-115) mg/dL Calcium 9.6 (8.4-10.2) mg/dL Magnesium 2.0 (1.6-2.6) mg/dL Troponin I High Sens < 2.7 (<3.5-35.0) ng/L Influenza Type A (PCR) NEGATIVE (Negative) Influenza Type B (PCR) NEGATIVE (Negative) RSV RNA Qual (PCR) NEGATIVE (Negative) SARS-CoV-2 RNA (RT-PCR) NEGATIVE (Negative) S. pyogenes GrpA MELODY Negative (Negative) Independent Interpretation I performed an independent interpretation of an: Plain X-Ray Radiology Impression Discussion of test interpretation with radiology: I have reviewed the radiologist's reading. Radiologist Impression: The lungs are clear. Normal size heart. No acute fracture. IMPRESSION: 1. No acute findings. Critical Care Time Critical Care Time Critical Care Time: Yes Total Critical Care Time: 45 Attestation: I have personally provided critical care time. Time includes review of lab data, radiology results, discussion with consultants, and monitoring for potential decompensation. Intervention performed as documented. Discharge Plan Discharge Clinical Impression: Bronchitis, Bilateral wheezing Patient Disposition: Home, Self-Care Instructions: Acute Bronchitis (ED), Wheezing (ED) Additional Instructions: Please follow-up with your primary care physician tomorrow. If you have any worsening or new symptoms, please return to the emergency room or call 911 Prescriptions: New albuterol sulfate 90 mcg/actuation HFA aerosol inhaler 2 puff inhalation Q4-6H PRN (Reason: shortness of breath or wheezing) Qty: 8.5 0RF prednisone 50 mg tablet 50 mg PO DAILY Qty: 4 0RF No Action amoxicillin 500 mg tablet 500 mg PO Q12H Qty: 20 0RF naproxen 500 mg tablet 500 mg PO BID PRN (Reason: pain) Qty: 30 0RF ondansetron 4 mg tablet,disintegrating 4 mg PO Q8H PRN (Reason: nausea and vomiting) Qty: 10 0RF Stand Alone Forms: Work/School Release Print Language: Lithuanian
[2024-04-02 17:10] LABS: MANUAL DIFF FLAG NO
[2024-04-02 17:15] LABS: Basophils Absolute Auto 0.1 X10*3/uL (0.0-0.2); Basophils Percent Auto 0.4 % (0-2); Eosinophils Absolute Auto 0.4 X10*3/uL (0.0-0.4); Eosinophils Percent Auto 2.1 % (0-4); Hematocrit 47.1 % (42.0-52.0); Hemoglobin 15.7 g/dl (14.0-18.0); Imm Gran Abs Auto 0.06 X10*3/uL (0.00-0.03); Imm Gran Pct Auto 0.3 % (0.0-0.4); Lymphocytes Absolute Auto 1.6 X10*3/uL (1.2-4.9); Mean Corpuscular HGB Conc 33.3 g/dl (31.0-36.0); Mean Corpuscular Volume 86.9 fL (80.0-98.0); Mean Platelet Volume 9.3 fL (9.4-12.4); Monocytes Absolute Auto 1.3 X10*3/uL (0.1-1.2); Monocytes Percent Auto 6.3 % (2-11); Neutrophils Absolute Auto 16.8 x10*3/uL (2.0-8.3); Neutrophils Percent Auto 82.9 % (45-73); Platelet Count 341 X10*3/uL (160-400); Red Blood Count 5.42 X10*6/uL (4.60-5.80); Red Cell Distribution Width 13.2 % (11.0-16.0); White Blood Count 20.3 X10*3/uL (4.8-10.8)
[2024-04-02 17:31] LABS: Anion Gap 15 (12-20); Blood Urea Nitrogen 11 mg/dL (9-16); Calcium 9.6 mg/dL (8.4-10.2); Carbon Dioxide 23 mmol/L (22-29); Chloride 105 mmol/L (96-108); Creatinine Clr Calc Pharmacy 149.5; Estimated Glomerular Filt Rate > 60; Glucose Random 90 mg/dL (60-115); Potassium 4.3 mmol/L (3.3-5.1); Sodium 139 mmol/L (135-145)
[2024-04-02 17:43] LABS: Troponin-I High Sensitivity < 2.7 ng/L (<3.5-35.0)
[2024-04-02 18:01] LABS: Influenza A PCR NEGATIVE (Negative); Influenza B PCR NEGATIVE (Negative); Resp Syncy Virus RNA Qual PCR NEGATIVE (Negative); SARS COV2 PCR INHOUSE NEGATIVE (Negative)
[2024-04-03 00:05] VITALS: BP 148/88; PULSE 108; RESP 16; TEMP 37.3; O2SAT 95
--- NOTE | 2024-04-03 00:05 | PC.NURSE ---
this rn assumed care of pt from waiting room at 0000 pt reporting sore throat and pain while swallowing strep swab in place
[2024-04-03] MEDS: predniSONE 20 MG TABLET 60 MG PO (00:33)
[2024-04-03 00:38] VITALS: PULSE 119; RESP 21; O2SAT 95
[2024-04-03] MEDS: Albuterol Sulfate 2.5 MG, Albuterol/Iprat 2.5/0.5MG 3 ML 3 ML INHALE ×2 (00:41→01:08)
[2024-04-03 00:46] LABS: IDNOW Serial# 58CA691E; Strep A Nucleic Acid Negative (Negative)
[2024-04-03 01:09] VITALS: PULSE 116; RESP 20; O2SAT 97
[2024-04-03 02:09] VITALS: BP 133/75; PULSE 114; RESP 18; TEMP 36.8; O2SAT 95
--- NOTE | 2024-04-03 02:10 | MHC.EDTECH ---
Ambulation trial done per provider. 02 steady @ 92-94. Pulse rate increased to low 130's. Provider aware.
[2024-04-03 02:55] VITALS: BP 133/75; PULSE 114; RESP 18; TEMP 36.8; O2SAT 95
== END 2024-04-03 02:57 | disposition home or self-care (01) ==
PROVIDERS: Physician Assistant Medical; Emergency Provider Emergency Medicine
DX: J40 Bronchitis, not specified as acute or chronic (principal); R06.2 Wheezing; R05.9 Cough, unspecified; J02.9 Acute pharyngitis, unspecified; R06.02 Shortness of breath; Z03.818 Encounter for observation for suspected exposure to other biological agents ruled out
CPT/HCPCS: 0241U; 36415; 71045; 80048; 83735; 84484; 85025; 87651; 93005; 94640; 99284; 99285

== ENCOUNTER → 2024-04-02 16:31 | Outpatient (BNV) | payer SELFPAY | PROVIDERS: Emergency Provider Emergency Medicine; Visit Provider Internal Medicine Cardiovascular Disease | DX: R00.0 Tachycardia, unspecified (principal) | CPT/HCPCS: 93010 ==

== ENCOUNTER → 2024-04-02 16:31 | Outpatient (BNV) | payer SELFPAY | PROVIDERS: Visit Provider Nuclear Medicine | DX: R07.9 Chest pain, unspecified (principal) | CPT/HCPCS: 71045 ==

== ENCOUNTER 2025-01-25 07:00 | Emergency (ER) | payer OTHER, SELFPAY ==
--- NOTE | ~2025-01-25 | XR_ITS ---
EXAMINATION: XR CHEST 1 VIEW HISTORY: cough COMPARISON: Comparison is made with the prior examination dated 04/02/2024. FINDINGS: A single AP portable view of the chest performed at 7:50 AM is submitted. There are low lung volumes. There is a possible airspace opacity at the right lung base. Evaluation is limited by low lung volumes. There is no pleural effusion, pneumothorax, or pulmonary vascular congestion. The heart is normal in size. The bones are intact. XR/XR chest 1V IMPRESSION: Limited examination due to low lung volumes. Possible airspace opacity at the right lung base. Repeat PA and lateral views with greater inspiratory effort are suggested. Electronically signed by: Ga Christopher MD 01/25/2025 08:04 AM [email or web address]
[2025-01-25 07:03] VITALS: BP 145/71; PULSE 85; RESP 20; TEMP 36.7; O2SAT 95; BMI 34.2
--- OUTSIDE RECORDS SUMMARY | 2025-01-25 07:24 | XMS_ITS | Clinical Summary ---
Author Organization [employer] Address [address] [place] [address] Care Team Providers Care Computer Teacher Name Role Phone Unavailable Primary Care Provider Unavailabl e Allergies Active Allergy Reactions Criticality Noted Date Comments Shellfish Allergy 04/22/2022 Medications ibuprofen 200 MG tabletIndicatio ns:Strep throat Take 2 tablets (400 mg) by mouth every 6 (six) hours if needed for mild pain, moderate pain or fever. 30 tablet 04/22/2022 Active Active Problems No known active problems Social History Tobacco Use Types Packs/Day Years Used Date Smoking Tobacco: Never Passive Smoke Exposure: Never Smokeless Tobacco: Never Tobacco Cessation:Counseling Given: Not Answered Sex and Gender Information Value Date Recorded Sex Assigned at Male 12/24/2021 10:22 AM EDT Legal Sex Male 10:22 AM EDT Gender Identity Choose not to disclose 5:57 PM EST Sexual Orientation Don't know 04/22/2022 5: 57 PM EST Last Filed Vital Signs Vital Sign Reading Time Taken Comments Blood Pressure 137/89 04/22/2022 6:26 PM EST Pulse 95 04/22/2022 6:26 PM EST Temperature 36.9 C (98.4 F) 04/22/2022 6:26 PM EST Respiratory Rate 19 04/22/2022 6:26 PM EST Oxygen Saturation 99% 04/22/2022 6:26 PM EST Inhaled Oxygen Concentration - - Weight 85.4 kg (188 lb 4 oz) 04/22/2022 6:26 PM EST Height - - Body Mass Index - - Plan of Treatment Health Maintenance Due Date Last Done Comments Depression Screening 1997 HIV Screening 1997 SDOH Screening 1997 Disability Screening 1997 Alcohol/Substance Use Screening 2009 Family Planning (PISQ) 2012 Hepatitis C Screening 11/04/2015 DTaP/Tdap/Td Vaccines (7 - Td or Tdap) 09/21/2020 09/21/2010, 07/01/2005, 02/06/1999, Additional history exists Tobacco Screening 04/22/2023 04/22/2022 COVID-19 Vaccine (3 - season) 2024 06/30/2020, 06/09/2020 Influenza Vaccine (#1) 2024 6, 03/02/2014, 02/01/2013, Additional history exists Zoster Vaccines (1 of 2) 11/04/2047 RSV Patients and Patients Aged 60 years or older (1 - 1-dose 75+ series) 2072 Hepatitis B Vaccines Completed 07/07/1998, 04/07/1998, 01/10/1998 HIB Vaccines Completed 02/06/1999, 06/24, 04/07/1998, Additional history exists IPV Vaccines Completed 01/05/2002, 06/24, 04/07/1998, Additional history exists Hepatitis A Vaccines Completed 05/02/2014, 09/22/19 11 HPV Vaccines Completed 11/08/2014, 06/24, 05/02/2014 Meningococcal Vaccine Completed 05/10/2015, 011 Meningococcal B Vaccine Aged Out No l onger eligible based on patient's age to complete this topic Pneumococcal Vaccine: Pediatrics (0 to 5 Years) and At-Risk Patients (6 to 49) Years Aged Out No longer eligible based on patient's age to complete this topic RSV under 20 months Aged Out No longe r eligible based on patient's age to complete this topic Rotavirus Vaccines Aged Out No longer eligible based on patient's age to complete this topic Insurance [facility] C3
[2025-01-25 08:00] LABS: IDNOW Serial# 55D5AD1C; Strep A Nucleic Acid Invalid (Negative)
[2025-01-25 09:21] LABS: Resp Syncy Virus RNA Qual PCR NEGATIVE (Negative); SARS COV2 PCR INHOUSE NEGATIVE (Negative)
--- NOTE | 2025-01-25 10:18 | ED_ITS ---
HPI - General Adult General Chief complaint: Upper Respiratory Symptoms Stated complaint: Asthma Time Seen by Provider: 01/25/25 10:18 Source: patient Mode of arrival: ambulatory Limitations: no limitations History of Present Illness ED Provider: Aruna Franks PA-C HPI narrative: Patient is a 29 year old assigned male at with no reported medical history presenting to the emergency department today with a cough and congestion. Patient states that over the last 3 days he has been having a cough and nasal congestion. Patient states that he was previously on an inhaler that helped some but he is almost out of it. Patient states that he cannot tolerate taking pills at baseline. Patient denies any other complaints at this time. Related Data Previous Rx's ?Medication ?Instructions ?Recorded amoxicillin 500 mg tablet 500 mg PO Q12H #20 tabs 03/28 06/15 naproxen 500 mg tablet 500 mg PO BID PRN pain #30 t abs 07/02/22 ondansetron 4 mg disintegrating 4 mg PO Q8H PRN nausea and 12/17/22 tablet vomiting #10 tabs albuterol sulfate 90 mcg/actuation 2 puff inhalation Q 4-6H PRN 04/03/24 aerosol inhaler shortness of breath or wheez ing #8.5 grams prednisone 50 mg tablet 50 mg PO DAILY #4 tabs 04/03 albuterol sulfate 90 mcg/actuation 1 inh inhalation QI D PRN shortness 01/25/25 aerosol inhaler (Ventolin HFA) of breath or wheezing # 8.5 grams amoxicillin 250 mg-potassium 31 ml PO BID 7 days #434 mL 01/25/25 clavulanate 62.5 mg/5 mL oral suspension (Augmentin) azithromycin 200 mg/5 mL oral See Rx Instructions PO . COMPLEX 01/25/25 suspension #22.5 mL prednisolone 15 mg/5 mL oral 30 mg (10 mL) PO DAILY #2 40 mL 01/25/25 solution Allergies Allergy/AdvReac Type Severity Reaction Status Date / Time SEAFOOD Allergy Unknown UNKNOWN Uncoded 01/25/25 07:06 Review of Systems Constitutional: Constitutional: Reports as per HPI Eyes: Eyes: Reports as per HPI ENT: Reports as per HPI Cardiovascular: Cardiovascular: Reports as per HPI Respiratory: Respiratory: Reports as per HPI Gastrointestinal: Gastrointestinal: Reports as per HPI Genitourinary: Genitourinary: Reports as per HPI Musculoskeletal: Musculoskeletal: Reports as per HPI Integumentary/Breasts: Skin/Breast: Reports as per HPI Neurologic: Reports as per HPI Psychiatric: Psychiatric: Reports as per HPI Endocrine: Endocrine: Reports as per HPI Hematologic/Lymphatic: Hematologic/Lymphatic: Reports as per HPI Allergic/Immunologic: Allergic/Immunologic: Reports as per HPI [facility] Past Medical History Attestation statement: The following information was validated with the patient. Source: old records reviewed and nursing notes reviewed Medical History No known health problems Social History Social History Alcohol intake: current Alcohol intake frequency: holidays/special occasions only Substance Use Type: Marijuana Advance Directives: No Advance Directives Information Provided: Yes Do you have a plan to hurt others: No Plan Physical Exam ED Vital Signs: Vital Signs - 24 hr 01/25/25 07:03 01/25/25 10:19 01/25/25 10:41 Temperature 98.1 F 98.1 F 98.1 F Pulse Rate 85 92 92 Respiratory Rate 20 16 16 Blood Pressure 145/71 H 114/77 114/77 Pulse Oximetry 95 96 96 Oxygen Delivery Method Room Air Room Air Room Air BMI result Body Mass Index 34.2 Const General: cooperative, no acute distress, alert and awake Nutritional Appearance: well nourished Orientation/consciousness: patient oriented x3 HENMT Head: Yes normal to inspection and Yes atraumatic Ears: hearing grossly normal bilaterally and external ears normal General nose exam: Normal external nose present, no nasal discharge noted and no epistaxis Face and sinus: Yes normal facial exam, No abrasion and No laceration Mouth: Normal oral and palatal mucosa present, no drooling and no muffled voice Eyes General: appearance normal, both eyes and all related structures Periorbital: periorbital findings normal Eyelids: Yes eyelids normal Conjunctivae: conjunctivae normal Pupils: Equal, round and reactive pupils present EOM: EOMs intact bilaterally Neck Neck: Yes normal visual inspection and Yes full ROM Resp Effort & Inspection: normal respiratory effort and able to speak in complete sentences Neuro General: patient oriented x3, moves all extremities and CN's II-XI intact bilaterally Cranial nerves: Yes Equal, round and reactive pupils present Cognition (Neuro): normal cognition Extrem General: Yes normal to inspection, Yes full ROM and Yes capillary refill normal Psych Appearance: grossly normal Mental Status: mental status grossly normal Affect: normal affect Attitude: cooperative Thought process: Normal thought process present Thought content: Normal thought content present Insight: Good insight present (Psych) Medications Administered Discontinued Medications Generic Name Dose Route Start Last Admin Trade Name Alison PRN Reason Stop Dose Admin Dexamethasone Sodium Phosphate 10 mg 01/25/25 10:24 01/25/25 10:35 Dexamethasone Sod Phosphate 10 Mg/Ml Vial PO 01/25/25 10:25 10 mg ONCE ONE Administration Medical Decision Making Medical Decision Making MDM Narrative: Patient is a 29 year old assigned male at with no reported medical history presenting to the emergency department today with a cough and congestion. Patient's physical exam was as noted in the physical exam portion of this note. Patient's chest x-ray showed a right lower lobe pneumonia. I explained my physical exam findings as well as all test results to the patient. I answered all questions asked by the patient. Patient prescribed an albuterol inhaler and liquid antibiotics. I stressed the importance of the patient taking his medication as directed (either prescribed or as the over the counter packaging recommends). I stressed the importance of the patient following up with his primary care provider. I stressed the importance of the patient returning to the emergency department immediately if his symptoms were to worsen or if he were to develop any dizz iness, shortness of breath, difficulty breathing, chest pain, blurry vision, loss of vision, nausea, vomiting, abdominal pain, fever, chills, back pain, or any other complaints. Patient verbalized agreement and understanding with this treatment plan and discharge. Differential Diagnosis Differential Diagnoses: The differential diagnosis associated with the presentation includes Cough PNA COVID-19 Influenza RSV Admission/Observation Consideration of admission/observation: Escalation of care including admission/observation considered Patient would have been admitted to the hospital had his work up had any findings where hospital admission was appropriate and his clinical presentation warranted hospital admission. Lab Data [facility] Lab Attestation statement: I reviewed the patient's lab results. My interpretation of these results are in the MDM Rationale portion of this note. Labs: Lab Results 01/25/25 Range/Units 07:17 Influenza Type A (PCR) NEGATIVE (Negative) Influenza Type B (PCR) NEGATIVE (Negative) RSV RNA Qual (PCR) NEGATIVE (Negative) SARS-CoV-2 RNA (RT-PCR) NEGATIVE (Negative) S. pyogenes GrpA MELODY Invalid (Negative) Independent Interpretation I performed an independent interpretation of an: Plain X-Ray Interpretation: My interpretation is in agreement with the radiologist's impression of this imaging study as written below. Reason for Exam: cough EXAMINATION: XR CHEST 1 VIEW HISTORY: cough COMPARISON: Comparison is made with the prior examination dated 04/02/2024. FINDINGS: A single AP portable view of the chest performed at 7:50 AM is submitted. There are low lung volumes. There is a possible airspace opacity at the right lung base. Evaluation is limited by low lung volumes. There is no pleural effusion, pneumothorax, or pulmonary vascular congestion. The heart is normal in size. The bones are intact. XR/XR chest 1V IMPRESSION: Limited examination due to low lung volumes. Possible airspace opacity at the right lung base. Repeat PA and lateral views with greater inspiratory effort are suggested. Electronically signed by: Ga Christopher MD 01/25/2025 08:04 AM EST RP Dictated By: Ga Christopher MD Signed By: Electronically signed by Ga Christopher MD 01/25/25 0804 Radiology Impression Discussion of test interpretation with radiology: I have reviewed the radiologist's reading. Prescription Management I considered prescription management with: Antibiotic (patient prescribed antibiotics) Discharge Plan Discharge Clinical Impression: Pneumonia Patient Disposition: Home, Self-Care Instructions: Community Acquired Pneumonia (DC) Additional Instructions: Your x-ray showed evidence of pneumonia. Take your antibiotic as prescribed. La radiograf?a mostr? signos de neumon?a. [place] el antibi?clara seg?n lo prescrito. IF you are prescribed home medications and/or you are taking over the counter medications at home - it is very important you continue to do so as prescribed / directed unless told otherwise. SI le recetan medicamentos y/o est? tomando medicamentos de venta harvey, es muy importante que contin?e haci?ndolo seg?n lo recetado/indicado a menos que le indiquen lo contrario. Follow up with your primary care provider. Return to the emergency department immediately if your symptoms worsen or if you develop any dizziness, shortness of breath, difficulty breathing, chest pain, blurry vision, loss of vision, nausea, vomiting, abdominal pain, fever, chills, back pain, or any other complaints. Guevara?seguimiento?con bishop m?dico de atenci?n primaria. Acuda inmediatamente al servicio de urgencias si sam s?ntomas empeoran o si presenta falta de aliento, dificultad para respirar, dolor tor?cico, mareos, aturdimiento, dolor de espalda, dolor abdominal, fiebre, escalofr?os o cualquier otro s?ntoma. If you do not have a primary care provider - call any of the below numbers to establish and follow up with a primary care provider. Si no tiene un proveedor de atenci?n primaria, llame a cualquiera de los n?meros que aparecen a continuaci?n para establecer y hacer seguimiento con un proveedor de atenci?n primaria. [facility] Primary Care ([place]) [phone] [facility], [address] [facility] Primary Care ([address] [place]) [phone] [place] [address], [address] [facility], [address] [facility] Primary Care ([address] [place]) [phone] [place] [address], [address] [facility], [address] [facility] Primary Care ([place]) [phone] [place] [address] [address] [facility], [address] [facility] Family Medicine [phone] [place] [address], [address] Please see the information below about our Patient Portal. If you are not yet enrolled in the [facility] Patient Portal, you will receive an enrollment email invitation following your visit to any [facility] care setting. You may also self-enroll in the Patient Portal by visiting our website: [email or web address] The following information is required to access the Patient Portal: - Your [facility] Medical Record Number - Your personal home email address (must match what is in your electronic medical record, Registration staff can assist with this) - Name - Date of Capabilities of the Patient Portal: - Message some providers - View upcoming appointments - Access your health summary, medical history, and visit history - View current conditions and allergies - View procedure and lab results - View your medications, including guidelines, side effects, and precautions - Complete pre-appointment questionnaires requested by your provider - Ready summary reports of your office visits and procedures To access the Patient Portal Mobile Shoshana, follow these directions: - Search [employer] in the Shoshana Store or Spot Runner Store - Download the Shoshana - Search for [facility] - Enter your login/password Portal del paciente Si usted no esta inscrito en el portal de pacientes de [facility], recibira lennox invitacion de inscripcion despues de bishop visita al [facility] o al [facility] via correo electronico. Tambien puede inscribirse voluntariamente en el portal de pacientes visitando nuestra pagina web: [email or web address] La siguiente informacion sera requerida para acceder al portal: - Bishop ronda de historia medica de [facility] - Bishop direccion de correo electronico personal - Nombre - Fecha de nacimiento Capacidades: Las siguientes capacidades estan disponibles en el portal de pacientes: - Enviar mensajes a algunos doctores - Verificar proximas citas - Acceso a bishop historial de alfredo, registro medico e historial de visitas - Josue las condiciones actuales y alergias josue procedimientos y resultados del laboratorio - Josue sam medicamentos, incluyendo las pautas - Efectos secundarios y precauciones - Completar o llenar formularios / cuestionarios de - Citas solicitadas por bishop doctor - Leer los resumenes de reportes medicos de sam visitas y procedimientos [place] acceder a la aplicacion movil: - [employer] en la Shoshana Store o Google [employer]et Store - Descargue la aplicacion - [facility] - Ingrese bishop nombre de usuario / Contrasena Prescriptions: New prednisolone 15 mg/5 mL solution 30 mg PO DAILY Qty: 240 0RF azithromycin 200 mg/5 mL suspension for reconstitution See Rx Instructions .ROUTE .COMPLEX Qty: 22.5 0RF Rx Instructions: take 12.5 mL (500 mg) by mouth today (day 1), then 6.25 mL (250 mg) daily for 4 days (days 2-5) amoxicillin-pot clavulanate [Augmentin] 250-62.5 mg/5 mL suspension for reconstitution 31 ml PO BID 7 Days Qty: 434 0RF albuterol sulfate [Ventolin HFA] 90 mcg/actuation HFA aerosol inhaler 1 inh inhalation QID PRN (Reason: shortness of breath or wheezing) Qty: 8.5 0RF No Action amoxicillin 500 mg tablet 500 mg PO Q12H Qty: 20 0RF albuterol sulfate 90 mcg/actuation HFA aerosol inhaler 2 puff inhalation Q4-6H PRN (Reason: shortness of breath or wheezing) Qty: 8.5 0RF prednisone 50 mg tablet 50 mg PO DAILY Qty: 4 0RF naproxen 500 mg tablet 500 mg PO BID PRN (Reason: pain) Qty: 30 0RF ondansetron 4 mg tablet,disintegrating 4 mg PO Q8H PRN (Reason: nausea and vomiting) Qty: 10 0RF Stand Alone Forms: Work/School Release Interventions: ED Discharge Assessment Last Done: 01/25/25 10:41 Discharge Date/Time: 01/25/25 10:44 Print Language: British
[2025-01-25 10:19] VITALS: BP 114/77; PULSE 92; RESP 16; TEMP 36.7; O2SAT 96
--- NOTE | 2025-01-25 10:28 | PC.NURSE ---
Pt roomed and seen by provider- VSS IVET.
[2025-01-25 10:41] VITALS: BP 114/77; PULSE 92; RESP 16; TEMP 36.7; O2SAT 96
== END 2025-01-25 10:44 | disposition home or self-care (01) ==
PROVIDERS: Emergency Provider Emergency Medicine
DX: J18.9 Pneumonia, unspecified organism (principal); R05.9 Cough, unspecified; R09.81 Nasal congestion; Z03.818 Encounter for observation for suspected exposure to other biological agents ruled out
CPT/HCPCS: 71045; 87637; 87651; 99283; 99284; J1100

== ENCOUNTER → 2025-01-25 07:09 | Outpatient (BNV) | payer SELFPAY | PROVIDERS: Visit Provider Radiology Diagnostic Radiology | DX: J98.4 Other disorders of lung (principal) | CPT/HCPCS: 71045 ==